=== PATIENT | male | born 1975 | race Caucasian/White ===

== ENCOUNTER 2019-08-18 20:28 | Emergency (ER) | payer SELFPAY ==
[~2019-08-18] VITALS: Ht 193 cm; Wt 136.1 kg
[2019-08-18 21:05] VITALS: BP 142/90
[2019-08-18] MEDS ORDERED: KETOROLAC 30 MG/ML VIAL IM ONE (21:25)
[2019-08-18] MEDS ORDERED: cefTRIAXone 1,000 MG in LIDOCAINE MPF 1% 2.1 ML IM ONE (21:25)
[2019-08-18 22:24] VITALS: BP 142/90
== END 2019-08-18 22:24 | disposition home or self-care (01) ==
LOC: MED 20:28
DX: L03.011 Cellulitis of right finger (principal); F17.210 Nicotine dependence, cigarettes, uncomplicated
CPT/HCPCS: 29130; 96372; 99283; J0696; J1885; J2001